=== PATIENT | female | born 1985 | race Caucasian/White ===

== ENCOUNTER 2018-06-10 16:22 | Emergency (ER) | payer SELFPAY ==
[2018-06-10 16:23] VITALS: BP 126/97; PULSE 97; RESP 18; TEMP 36.8; O2SAT 99; BMI 43.6
--- NOTE | 2018-06-10 16:49 | ED.DCSUM_ITS ---
- ER Visit Summary Date of Service: 06/10/18 Chief Complaint: Dental pain History of Present Illness: The patient is a 32 F with right mandibular molar that is bad for quite some time. She reports increased pain for the past 1 week. She been taking 20 ibuprofen a day. She states she does have a dentist that she can follow-up with but needs to be on antibiotics first. Physical Examination: Vital signs unremarkable. Patient lying in a darkened room in no acute distress. Head neck examination was no facial edema or erythema. Intraoral examination reveals right mandibular third molar to be fracture along the posterior surface. There is very mild gum edema. Uvula is midline. There is no trismus. No submental fullness. Remainder of exam is unremarkable. Test Results: [] Emergency Department Course and Treatment: Patient be written for Pen-Vee K and naproxen. She is intended not to take ibuprofen or Aleve with this. She can use Orajel and Tylenol as well. She is to call her dentist for an appointment tomorrow. Treatment Plan: [] Disposition: Discharge Impression: Odontalgia This note was generated with [employer] dictation software. It may contain incorrect words, spelling, and punctuation that were not noted in review of the chart prior to signing ED Disposition - Plan for ED Patient: Disposition: Home or Assisted Living Instructions: ED Tooth Pain Prescriptions: Naproxen [Naprosyn] 500 mg PO BID PRN PRN #20 tablet PRN Reason: Pain Penicillin V Potassium 500 mg PO 4X/DAY #40 tablet Additional Instructions: Call your dentist tomorrow for an appointment.
[2018-06-10] MEDS: Penicillin Vk 250 MG Tablet 500 MG PO (17:48)
[2018-06-10] MEDS: Naproxen 250 MG Tablet 500 MG PO (17:57)
== END 2018-06-10 18:09 | disposition home or self-care (01) ==
LOC: ED 16:55
PROVIDERS: Emergency Provider Emergency Medicine
DX: K08.89 Other specified disorders of teeth and supporting structures (principal); S02.5XXA Fracture of tooth (traumatic), initial encounter for closed fracture; X58.XXXA Exposure to other specified factors, initial encounter; Y93.9 Activity, unspecified; Y92.9 Unspecified place or not applicable; Y99.9 Unspecified external cause status; Z72.0 Tobacco use
CPT/HCPCS: 99283

== ENCOUNTER 2019-02-17 13:31 | Emergency (ER) | payer SELFPAY ==
[2019-02-17 13:33] VITALS: BP 121/71; PULSE 58; RESP 18; TEMP 37.2; O2SAT 96; BMI 21.2
--- NOTE | 2019-02-17 14:07 | ED.VISSUMM ---
- ER Visit Summary Date of Service: 02/17/19 Chief Complaint: Throat sore History of Present Illness: The patient is a 33 F with a sore throat for 3 days. Associated with fevers and cough. Patient is status post tonsillectomy remotely. Smoker. Otherwise healthy. Physical Examination: Afebrile and vital signs unremarkable. HEENT exam unremarkable. Neck good range of motion and no lymphadenopathy. Lungs clear. Heart regular. Skin appears normal. Test Results: None indicated Emergency Department Course and Treatment: Patient has signs and symptoms of infectious pharyngitis. Strep is prevalent currently. We will treat after discussion with the patient. Received Bicillin. Use [id number] remedies for pain and other symptoms. Follow-up with primary care. Treatment Plan: As above Disposition: Discharge Impression: 1. Pharyngitis This note was generated with [employer] dictation software. It may contain incorrect words, spelling, and punctuation that were not noted in review of the chart prior to signing ED Disposition - Plan for ED Patient: Referrals: Care Physician,No Primary [Primary Care Provider] -
--- NOTE | 2019-02-17 14:08 | ED.DEP ---
ED Disposition - Plan for ED Patient: Instructions: PHARYNGITIS, Strep (Confirmed) Referrals: Bella Omalley [NON-STAFF] -
[2019-02-17] MEDS: Penicillin G Benzathine 1.2 MU/2 ML Syringe IM (14:17)
[2019-02-17 14:37] VITALS: PULSE 62; RESP 17; O2SAT 96
== END 2019-02-17 14:38 | disposition home or self-care (01) ==
LOC: ED 13:54
PROVIDERS: Emergency Provider Emergency Medicine
DX: J02.9 Acute pharyngitis, unspecified (principal); F17.200 Nicotine dependence, unspecified, uncomplicated
CPT/HCPCS: 96372; 99282

== ENCOUNTER 2019-12-01 21:00 | Emergency (ER) | payer SELFPAY ==
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
[2019-12-01 23:35] VITALS: TEMP -17.7; TEMP 0
== END 2019-12-01 23:38 | disposition left against medical advice (07) ==
LOC: ED 21:14
PROVIDERS: Emergency Provider Emergency Medicine
DX: Z04.3 Encounter for examination and observation following other accident (principal); Z53.21 Procedure and treatment not carried out due to patient leaving prior to being seen by health care provider